=== PATIENT | female | born 1965 | race Caucasian/White ===

== ENCOUNTER → 2020-09-08 | Outpatient (CLI) | payer BC, OTHER ==
[~2020-09-08] MED LIST: BACTRIM DS TAB1 EACH PO; BUPRENORPHIN-N1 EACH SL; CALCIUM PO; ELIQUIS 2.5 MG2.5 MG PO; FLEXERIL 10 MG10 MG PO; GABAPENTIN800 MG PO; KEFLEX CAP 500500 MG PO; MOBIC15 MG PO; MULTI VITAMIN PO; PEPCID40 MG PO; PERCOCET 10-321 EACH PO; PROZAC PO; PROZAC40 MG PO; SUBOXONE PO; THERAGRAN M TAB1 EA PO; VIT D PO; VITAMIN D250000 UNIT PO; ZANTAC150 MG PO; ZYRTEC10 MG PO
== END ==
LOC: RAD 16:51
DX: M54.5 Low back pain (principal); W19.XXXA Unspecified fall, initial encounter; M47.816 Spondylosis without myelopathy or radiculopathy, lumbar region
CPT/HCPCS: 72100; 72220

== ENCOUNTER → 2020-10-10 | Outpatient (CLI) | payer BC, OTHER | LOC: KOH-I 13:52 | DX: R05 Cough (principal); R91.8 Other nonspecific abnormal finding of lung field | CPT/HCPCS: 71046 ==

== ENCOUNTER → 2020-10-30 | Outpatient (CLI) | payer BC, OTHER | LOC: US 10-02 09:00 | DX: R22.2 Localized swelling, mass and lump, trunk (principal) | CPT/HCPCS: 76705 ==

== ENCOUNTER → 2020-11-21 | Outpatient (CLI) | payer BC, OTHER | LOC: CT 08:18 | DX: R93.5 Abnormal findings on diagnostic imaging of other abdominal regions, including retroperitoneum (principal); K90.9 Intestinal malabsorption, unspecified; Z78.0 Asymptomatic menopausal state | CPT/HCPCS: 74160; Q9967 ==

== ENCOUNTER → 2021-10-19 | Outpatient (CLI) | payer BC, OTHER | LOC: KOH-I 10:26 | DX: M54.50 Low back pain, unspecified (principal); M48.07 Spinal stenosis, lumbosacral region; M51.37 Other intervertebral disc degeneration, lumbosacral region | CPT/HCPCS: 72148 ==